=== PATIENT | female | born 1965 | race Caucasian/White ===

== ENCOUNTER 2017-02-25 21:48 | Emergency (ER) | payer SELFPAY ==
[~2017-02-25 21:48] MED LIST: ABILIFY10 MG; ABILIFY2 M1 PO; ABILIFY5 M1 PO; ALPRAZOLAM0.5 M3 PO; AMBIEN CR12.5 MG/BO; ANTIVERT25 MG PO; AVANDIA4 MG; BUSPAR30 MG PO; BUSPIRONE HCL10 M2 PO; BUSPIRONE HCL15 M2 PO; CLONAZEPAM0.5 M2 PO; COMPAZINE10 MG PO; COUMADIN5 MG; CYMBALTA60 MG; DIABETIC VITAMIN; DURAGESIC1 PATCH . TOP; EFFEXOR37.5 MG; GLUCOPHAGE1000 M1 PO; GLUCOPHAGE500 MG PO; H; HYDROCODONE/APA1 TAB; KLONOPIN0.5 MG; LAMICTAL XR200 M1 PO; LAMICTAL100 MG PO; LAMICTAL25 M2 PO; LANTUS100 UNITS/ SC; LEVAQUIN750 MG; LEVEMIR100 UNITS/ SC; MELOXICAM7.5 M1 PO; NORCO 10/3251 TAB PO; NORCO 5-325 TA1 EACH PO; OMEPRAZOLE20 M3 PO; PERCOCET 5MG/AP1 TAB PO; PRILOSEC20 MG PO; PROMETHAZINE HC25 M1 PO; PROVENTIL17 GM; RITALIN5 MG PO; SOMA350 MG; TORADOL10 MG PO; TRAMADOL HCL50 M2 PO; TRAMADOL HCL50 MG PO; TRAZODONE; TRAZODONE HCL100 M1 PO; TRAZODONE100 MG PO; TRILEPTAL300 M2 PO; XANAX0.5 MG
[2017-02-25] MEDS ORDERED: NORCO 5-325 TA1 EACH PO (23:39)
== END 2017-02-25 23:55 ==
LOC: EDMED 21:48
DX: S20.212A Contusion of left front wall of thorax, initial encounter (principal); J45.909 Unspecified asthma, uncomplicated; Z86.711 Personal history of pulmonary embolism; Z87.01 Personal history of pneumonia (recurrent); X58.XXXA Exposure to other specified factors, initial encounter; Y92.009 Unspecified place in unspecified non-institutional (private) residence as the place of occurrence of the external cause